=== PATIENT | female | born 1980 | race Caucasian/White ===

== ENCOUNTER 2016-11-07 03:25 | Observation (INO) | payer BC ==
[2016-11-07] MEDS ORDERED: Albuterol/Ipratropium NEB.SOL* Albuterol 2.5 MG/Ipratropium 0.5 MG 3 ML INH ONE ×2 (03:48→06:21)
[2016-11-07] MEDS ORDERED: methylPREDNISolone 125 MG* 2 ML VIAL IV ONE (03:48)
[2016-11-07] MEDS ORDERED: NS 0.9% 1000 ML* 1,000 ML IV ONE (03:48)
[2016-11-07] MEDS ORDERED: Albuterol/Ipratropium NEB.SOL* Albuterol 2.5 MG/Ipratropium 0.5 MG 3 ML ONE ×2 (04:31→20:31)
[2016-11-07 04:32] LABS: ALT 15 U/L (7-52); AST 22 U/L (13-39); Albumin 4.6 g/dL (3.2-5.2); Alkaline Phosphatase 64 U/L (34-104); Anion Gap 9 mmol/L (2-11); Blood Urea Nitrogen 12 mg/dL (6-24); CO2 Carbon Dioxide 22 mmol/L (22-32); Calcium 9.4 mg/dL (8.6-10.3); Chloride 102 mmol/L (101-111); EGFR African American 111.8 (>60); Globulin 3.4 g/dL (2-4); Glucose 124 mg/dL (70-100); Potassium 3.7 mmol/L (3.5-5.0); Sodium 133 mmol/L (133-145)
[2016-11-07 04:37] LABS: Hematocrit 46 % (35-47); Hemoglobin 15.5 g/dl (12.0-16.0); Mean Corpuscular HGB Conc 34 g/dl (31-36); Mean Corpuscular Hemoglobin 30 pg (27-31); Mean Corpuscular Volume 88 fL (80-97); Mean Platelet Volume 9 um3 (7.4-10.4); Red Blood Count 5.24 10^6/ul (4.0-5.4); Red Cell Distribution Width 13 % (10.5-15)
[2016-11-07 04:44] LABS: PCO2 Arterial 33 mmHg (35-45)
[2016-11-07 04:45] LABS: FIO2 28
--- NOTE | 2016-11-07 06:46 | ED ---
stacie Valencia Timothy, scribed for Romero Taylor on 11/07/16 at 0343 . Influenza-Like Illness - HPI Summary HPI Summary: Arsalan Freeman is a 36 yo female presenting to [facility] with flu-like Sx including SOB, productive cough today, and 8/10 pain since 11/04/16. She denies abd pain. She states she had fever 11/06/16. She has self-medicated with 500mg naproxen at 0100. She has no pertinent MHx. She is a tobacco smoker. - History of Current Complaint Time Seen by Provider: 11/07/16 03:38 Hx Obtained From: Patient Onset/Duration: Gradual Onset, Lasting Days, Still Present Severity: Moderate Associated Signs & Symptoms: Fever, Cough - Allergy/Home Medications Allergies/Adverse Reactions: Allergies Allergy/AdvReac Type Severity Reaction Status Date / Time No Known Allergies Allergy Verified 11/07/16 05:23 PMH/Surg Hx/FS Hx/Imm Hx Endocrine/Hematology History: Denies: Hx Diabetes Cardiovascular History: Denies: Hx Hypertension, Hx Pacemaker/ICD History: Denies: Hx Renal Disease Sensory History: Denies: Hx Hearing Aid Psychiatric History: Denies: Hx Panic Disorder - Surgical History Surgery Procedure, Year, and Place: WISDOM TEETH Infectious Disease History: No Infectious Disease History: Denies: Traveled Outside the [place] in Last 30 Days - Family History Known Family History: Positive: Diabetes Negative: Cardiac Disease, Hypertension - Social History Alcohol Use: None Hx Substance Use: No Substance Use Type: Reports: None Hx Tobacco Use: Yes Smoking Status (MU): Light Every Day Tobacco Smoker Review of Systems Positive: Fever Eyes: Negative ENT: Negative Cardiovascular: Negative Positive: Shortness Of Breath, Cough Gastrointestinal: Negative Genitourinary: Negative Musculoskeletal: Negative Skin: Negative Neurological: Negative Psychological: Normal All Other Systems Reviewed And Are Negative: Yes Physical Exam Triage Information Reviewed: Yes Vital Signs On Initial Exam: Initial Vitals Temp Pulse Resp BP Pulse Ox 97.7 F 92 16 132/74 96 11/07/16 03:29 11/07/16 03:29 11/07/16 03:29 11/07/16 03:29 11/07/16 03:29 Vital Signs Reviewed: Yes Appearance: Positive: No Pain Distress, Well-Nourished, Ill-Appearing Skin: Positive: Warm, Skin Color Reflects Adequate Perfusion, Dry Head/Face: Positive: Normal Head/Face Inspection Eyes: Positive: EOMI, RADHA ENT: Positive: Normal ENT inspection Neck: Positive: Supple, Nontender Respiratory/Lung Sounds: Positive: Clear to Auscultation, Breath Sounds Present , Wheezes - bilateral Cardiovascular: Positive: RRR, Pulses are Symmetrical in both Upper and Lower Extremities Abdomen Description: Positive: Nontender, Soft Bowel Sounds: Positive: Present Musculoskeletal: Positive: Normal, Strength/ROM Intact Neurological: Positive: Normal, Sensory/Motor Intact, Alert, Oriented to Person Place, Time Psychiatric: Positive: Normal Diagnostics - Vital Signs Vital Signs Temp Pulse Resp BP Pulse Ox 11/07/16 03:29 97.7 F 92 16 132/74 96 - Laboratory Result Diagrams: 11/07/16 03:55 11/07/16 03:55 Lab Statement: Any lab studies that have been ordered have been reviewed, and results considered in the medical decision making process. - Radiology CXR Xray Interpretation: No Acute Changes - No acute disease Radiology Interpretation Completed By: ED Physician Re-Evaluation - Re-Evaluation First Eval Re-Evaluation Time: 06:17 Change: Improved Comment: Pt received breathing Tx and is breathing much easier. Pt is still wheezy. Flu Symptom Course/Dx - Course Assessment/Plan: Arsalan Freeman is a 36 yo female presenting to [facility] with flu-like Sx and SOB and cough. After clinical examination and review of her negative CXR , negative flu tests, and lab work, she will be signed out to Dr. Cullen pending further evaluation. - Diagnoses Provider Diagnoses: Bronchospasm, Dyspnea Discharge - Discharge Plan Condition: Stable Disposition: OTHER Discharge Disposition Comment: sign out to Dr. Cullen for further evaluation Referrals: Bry Solis MD [Primary Care Provider] - The documentation as recorded by the stacie cuba Timothy accurately reflects the service I personally performed and the decisions made by , Romero Taylor.
[2016-11-07 07:44] LABS: Budding Yeast Present (Absent); Urine Bacteria Absent (Absent)
--- NOTE | 2016-11-07 07:56 | RAD ---
HISTORY: Shortness of breath COMPARISONS: None VIEWS:1: Single frontal portable view of the chest at 4:00 AM FINDINGS: LINES AND TUBES: None. CARDIOMEDIASTINAL SILHOUETTE: The cardiomediastinal silhouette is normal for portable technique. PLEURA: The costophrenic angles are sharp. No pleural abnormalities are noted. LUNG PARENCHYMA: The lungs are clear. ABDOMEN: The upper abdomen is clear. There is no subphrenic gas. BONES AND SOFT TISSUES: No bone or soft tissue abnormalities are noted. IMPRESSION: NO ACTIVE CARDIOPULMONARY DISEASE.
[2016-11-07] MEDS ORDERED: Acetaminophen TAB* 325 MG PO PRN (08:09)
[2016-11-07] MEDS ORDERED: Nicotine Inhaler* 10 MG AMP INH PRN (08:23)
--- NOTE | 2016-11-07 11:42 | ECHO ---
Patient: MISAEL CH [facility] Rec#: [id number] : 1980 Date: 11/07/2016 Age: 36y Height: 154.94 cm / 61.0 in Weight: 47.63 kg / 105.0 lbs Sex: F BSA: 1.44 Room#: [facility] Admit Date#: 11/07/2016 Type: Inpatient Referring: Bry Zelaya MD Reading: Adam Bernstein MD [employer] Installer: Maribel De Anda CHERI CC: Bry Solis MD Transthoracic Echocardiogram Indication: ACS,tachycardia BP: 102/64 HR: 108 Rhythm: Tachycardia Findings History: Admitted with SOB,fever. PMHx: smoker. Technical Comments: The study is technically limited due to the patient's smoking history. Completed at 1143. Left Ventricle: The left ventricular chamber size is decreased. Global left ventricular wall motion and contractility are within normal limits. There is normal left ventricular systolic function. The estimated ejection fraction is 60-65%. There is no consistent Doppler evidence of clinically significant diastolic dysfunction. Left Atrium: The left atrial cavity size is abnormally small. Right Ventricle: The right ventricular cavity size is abnormally small. The right ventricular global systolic function is normal. Right Atrium: The right atrial cavity size is normal. Aortic Valve: There is no evidence of aortic regurgitation. There is no evidence of aortic stenosis. Mitral Valve: The mitral valve leaflets appear normal. There is a trace of mitral regurgitation. There is no evidence of mitral stenosis. Tricuspid Valve: The tricuspid valve leaflets are normal. There is mild tricuspid regurgitation. There is no tricuspid stenosis. Pulmonic Valve: The pulmonic valve structure is not well visualized. Pericardium: The pericardium appears normal. There is no pericardial effusion. Aorta: The ascending aorta is not well visualized. There is no dilatation of the aortic arch. There is no dilation of the aortic root. Pulmonary Artery: The main pulmonary artery is not well visualized. Venous: The inferior vena cava appears normal in size. There is a greater than 50% respiratory change in the inferior vena cava dimension. Summary: There was not any prior study for comparison. Conclusions Global left ventricular wall motion and contractility are within normal limits. There is normal left ventricular systolic function. The estimated ejection fraction is 60-65%. The right ventricular global systolic function is normal. There is no evidence of aortic stenosis. There is a trace of mitral regurgitation. There is mild tricuspid regurgitation. The pericardium appears normal. There is no pericardial effusion. There was not any prior study for comparison. Measurements Name Value Normal Range RVIDd (AP) 2D 1.7 cm (0.9 - 2.6) RVDdMajor (2D) 2.1 cm (2.2 - 4.4) RAd ISD 4CH 3.4 cm (3.4 - 4.9) RA (A4C)W 3.3 cm (2.9 - 4.6) IVSd (2D) 0.7 cm (0.6 - 1) LVPWd (2D) 0.7 cm (0.6 - 1) LVIDd (2D) 2.6 cm (3.6 - 5.4) LVIDs (2D) 1.5 cm - LV FS (2D) 43 % (25 - 45) Aortic Annulus 1.5 cm (1.4 - 2.6) Ao root diameter (2D) 2.6 cm (2.1 - 3.5) Aortic arch 2.1 cm (1.8 - 3.4) Descending Ao 0.7 cm - LA dimension (AP) 2D 1.7 cm (2.3 - 3.8) LAd ISD 4CH 4.1 cm (2.9 - 5.3) LA ISD 4CH W 3.7 cm (2.5 - 4.5) Name Value Normal Range MV E-wave Vmax 0.9 m/sec - MV deceleration time 139 msec - MV A-wave Vmax 1 m/sec - MV E:A ratio 0.84 ratio - LV septal e' Vmax 0.1 m/sec - LV lateral e' Vmax 0.08 m/sec - LV E:e' septal ratio 9 ratio - LV E:e' lateral ratio 11.25 ratio - Name Value Normal Range AV Vmax 1.5 m/sec - AV VTI 29.7 cm - AV peak gradient 8.5 mmHg - AV mean gradient 3.59 mmHg - LVOT Vmax 1.1 m/sec - LVOT VTI 21.1 cm - LVOT peak gradient 4.69 mmHg - LVOT mean gradient 2.37 mmHg - Name Value Normal Range TR Vmax 2.7 m/sec - TR peak gradient 29 mmHg - RAP 3 mmHg - RVSP 32 mmHg - IVC diameter 0.9 cm -
[2016-11-07] MEDS: Gabapentin CAP(*) 100 MG PO SCH (12:05)
[2016-11-07] MEDS: NS 0.9% 1000 ML* 1,000 ML IV SCH ×2 (12:08→17:25)
[2016-11-07 12:32] LABS: C Reactive Protein 37.33 mg/L (< 5.00)
[2016-11-07] MEDS: Ibuprofen TAB* 600 MG PO SCH ×2 (14:23→21:12)
--- NOTE | 2016-11-07 15:46 | HP ---
ADMISSION HISTORY AND PHYSICAL: DATE OF ADMISSION: 11/07/16 PRIMARY CARE PROVIDER: Dr. Solis. HEALTH CARE PROXY: . CODE STATUS: Full. SOURCE OF INFORMATION: History obtained from interview with the patient and her . RELIABILITY: Fair. CHIEF COMPLAINT: "I couldn't breathe." HISTORY OF PRESENT ILLNESS: This is a 36-year-old female, no known significant past medical history, that was in her usual state of health until 2 days prior, she felt like she had flu-like symptoms associated with sweating and chills, but no measured fever at that time, myalgias, and generalized malaise. Her entire family had been sick including her and 2 children. Yesterday, she had increased difficulty breathing with the sensation she could not take a deep breath in, limited by tightness in her chest with deep breath, and she did have slight chest pain with deep inspiration. She felt like her difficulty breathing was worse with any ambulation and felt like she was gasping on walking to the bathroom. Overnight, she felt like she was not improving and therefore proceeded to the emergency room. In the emergency room, she was noted to be hypoxemic, requiring oxygen and the hospitalist service was consulted for admission. Of note, the patient has struggled with chronic symptomatology including dizziness described as disequilibrium, knee swelling and joint pain, "nerve pain " in the legs that feels "electric" for the last 5 years, no hair loss but sensation of decreasing hair fullness, blurry vision, leg tremors that last for less than 5 minutes described as myoclonic twitching for the last 2 to 3 years. She notes she is followed by Rheumatology as well as Neurology and her PCP, but carries no formal diagnosis at this time. She has had none of the above symptoms including the disequilibrium, knee swelling, pain, nerve pain, hair loss, blurry vision, or tremor over the last several days. PAST MEDICAL HISTORY: Includes tobacco abuse. MEDICATIONS: Include: 1. Gabapentin 100 mg in the morning and 200 mg in the evening. 2. Naproxen 500 mg in the morning and in the evening as needed. 3. Vitamin D3 [id number]. 4. Sinupret [id number] for sinuses daily. ALLERGIES: No known drug allergies. FAMILY HISTORY: No history of heart or lung disease. No known cancers or autoimmune disorders. SOCIAL HISTORY: Six cigarettes per day for 20 years. No alcohol. Marijuana nightly to assist with sleep. 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 , with 2 children. REVIEW OF SYSTEMS: As per HPI, including recent flu-like symptoms, including sweats, chills, myalgias, fatigue, increased shortness of breath, additionally cough and sore throat; otherwise, all other systems are negative. PHYSICAL EXAMINATION GENERAL: She is sitting up in bed, talks in full sentences, interactive. No apparent distress. VITAL SIGNS: When seen by this author, blood pressure 124/64, heart rate 140, respiratory rate is 16, T-max in the emergency room 99.4, and she remains 93% on 2 L nasal cannula. HEENT: Oropharynx is clear. Moist mucous membranes. Sclerae are anicteric. NECK: She had non-elevated JVD. No palpable cervical or supraclavicular lymphadenopathy. LUNGS: Her lungs have end-expiratory wheezes predominantly in the bases. HEART: She has a tachycardic heart rate with a very soft 1/6 to 2/6 early systolic ejection murmur, prominent P2. ABDOMEN: Soft, nontender, and nondistended with positive bowel sounds. No hepatosplenomegaly. EXTREMITIES: Warm and well-perfused. Less than 2-second cap refill. Good skin turgor. No clubbing, cyanosis, or edema. NEUROLOGIC: She is alert and oriented x3. Cranial nerves II through XII are intact. Gait was not assessed. No skin lesions noted. She has no apparent anxiety, agitation, or depression. DIAGNOSTIC STUDIES/LAB DATA: Labs reviewed. Sodium 133, potassium 3.7, bicarb 22, BUN 12, creatinine 0.75, and lactic acid is 1.4. LFTs are within normal limits. Troponin I is 0.00. BNP is 18. Beta-hCG is negative. Arterial pH 7.4 with pCO2 of 33 and pO2 of 97 on unknown amount of FiO2. White blood cell count is 8, hemoglobin 15.5, and platelets 199. Urine is concentrated with specific gravity of 1.031, 3+ red blood cells, as well as squamous epithelial cells. Other tests not performed secondary to color, negative for rapid influenza A and B. EKG reviewed, sinus tachycardia, borderline right axis, prolonged QTc measured at 576, possible left atrial enlargement, good R-wave progression, apparent FL elevations in II, III, aVF, V3 with [address] depressions in V3 and V4. Chest x-ray, formal impression: No active cardiopulmonary disease. No widening of the mediastinal silhouette in this author's interpretation. ASSESSMENT AND PLAN: This is a 36-year-old female with recent upper respiratory infection symptoms, presenting with difficulty breathing, notable hypoxia on presentation. Hypoxemia: This very well may be postviral reactive airway disease. No evidence to suggest bronchitis or pneumonia. In the setting of tachycardia, ST depressions as well as FL changes, borderline low-voltage throughout. It would be prudent to check a transthoracic echocardiogram to rule out any pericardial effusion. Pericarditis is on the differential, although the patient has not had chest pain except for yesterday. After transthoracic echocardiogram, can consider treating with nonsteroidal anti-inflammatories for pericarditis. Additionally, pericardial effusion is in the differential, status post recent upper respiratory infection, which could also cause difficulty breathing as well as tachycardia. We will hold on nonsteroidals until evaluation for potential effusion is performed. Pulmonary embolism is also on the differential , although the above deemed more likely by this author, we will hold on CTA. If transthoracic echocardiogram is unrevealing, we will move to perform this test. EKG changes - with ST depressions anterolaterally. We will repeat troponin now. Additionally, check D-dimer given prominent P2, tachycardia, and borderline low- voltage throughout EKG. Prolonged QTc measurement hindered by rapid rate. Repeat EKG when rate better controlled. 2 L of normal saline at 200 cc per hour for tachycardia. Hold QTc prolonging drugs including Zofran. Tobacco abuse: Nicotine inhaler available. DVT prophylaxis: Low risk, out of bed ad mariela. CC: Dr. Solis * [id number]/[facility] #: [id number] [facility] CENTERJose
[2016-11-07 16:53] LABS: Erythrocyte Sed Rate 22 mm/Hr (0-14)
--- NOTE | 2016-11-07 18:47 | CONS ---
CARDIOLOGY CONSULTATION: DATE OF CONSULT: 11/07/16 INDICATION FOR CONSULTATION: Chest pain, abnormal EKG. HISTORY OF PRESENT ILLNESS: The patient is a 36-year-old female with little past medical history who came to the emergency room because of chest pain and shortness of breath. Patient states that her family had been ill with a viral syndrome. Patient states that she was having fevers and shortness of breath at the end of last week. However, over the weekend she became progressively more weak and short of breath. She decided to come to the emergency room last night because of the shortness of breath. On arrival to the emergency room, the patient was in sinus tachycardia. Her initial EKG showed sinus tachycardia with nonspecific ST-T wave abnormalities. Patient's initial troponin was 0. Her second troponin was 0.35. Patient denies any true anginal type chest pain. Patient denies any palpitations. She denies any lightheadedness, dizziness, or syncope. Patient was admitted to the hospital because of her viral syndrome. Patient had an echocardiogram today, which demonstrated normal LV size and systolic function. No evidence of pericardial effusion. No focal wall motion abnormality. PAST MEDICAL HISTORY: Significant only for chronic fatigue syndrome. OUTPATIENT MEDICATIONS: 1. Gabapentin 200 mg q.h.s. 2. Naprosyn as needed. 3. Multivitamin a day. ALLERGIES: No known drug allergies. FAMILY HISTORY: No family history early coronary artery disease. SOCIAL HISTORY: She is . She denies tobacco or alcohol use. She has 2 children. REVIEW OF SYSTEMS: Positive for fever and chills. Positive for mild weight loss. Negative for nausea or vomiting. PHYSICAL EXAM: Height is 5 feet, weight is 105 pounds. Temperature 100 degrees Fahrenheit, heart rate is 120 and regular. Respiratory rate is 20, oxygen saturation 95% on 2 L, blood pressure 102/64. Sclerae anicteric. Oropharynx is pink without erythema. Carotids are 2+ without bruits. JVD is normal. Thyroid is normal. Cardiac exam: S1, S2 without any murmurs, rubs or gallops. Lungs are clear to auscultation. Extremities: Show no edema. Patient is awake, alert and oriented. She moves all 4 extremities equally. LABORATORY STUDIES: Chemistries within normal limits. AST and ALT within normal limits. Again, troponin level was initially 0, second troponin 0.35. CBC is normal. IMPRESSION: This is a 36-year-old female who came to the emergency room because of shortness of breath and fevers. The patient was admitted to the hospital with diagnosis of a viral syndrome. She has mildly elevated troponin levels consistent with mild pericarditis. Patient's echocardiogram is unremarkable. There is no evidence of focal wall motion abnormalities and no evidence of pericardial involvement. For now, my recommendation is to continue the patient on supportive care. She will be started on antiinflammatory medications. We will follow her EKGs. CC: Bry Zelaya MD * [id number]/[facility] #: [id number] MTDD
[2016-11-07] MEDS ORDERED: Albuterol/Ipratropium NEB.SOL* Albuterol 2.5 MG/Ipratropium 0.5 MG 3 ML INH PRN (20:26)
[2016-11-07] MEDS ORDERED: Gabapentin CAP(*) 100 MG PO SCH (21:00)
[2016-11-07] MEDS: Colchicine* 0.6 MG TAB PO SCH (21:13)
[2016-11-08] MEDS: Ibuprofen TAB* 600 MG PO SCH ×2 (05:30→11:56)
[2016-11-08] MEDS: Colchicine* 0.6 MG TAB PO SCH (08:49)
[2016-11-08] MEDS: Gabapentin CAP(*) 100 MG PO SCH (08:49)
[2016-11-08 11:27] VITALS: BP 105/70
--- NOTE | 2016-11-08 22:01 | DS ---
DISCHARGE SUMMARY: DATE OF ADMISSION: 11/07/16 DATE OF DISCHARGE: 11/08/16 PRIMARY CARE PROVIDER: Dr. Solis. PRIMARY DIAGNOSES: 1. Pericarditis. 2. Reactive airway disease. MEDICATIONS ON DISCHARGE: Include: 1. Vitamin D3 1000 International Units daily. 2. Multivitamin 1 tab daily. 3. Gabapentin 100 mg in the morning, 200 mg in the evening. 4. Prednisone 50 mg daily for 5 additional days. 5. Protonix 20 mg daily. 6. Ibuprofen 600 mg every 3 hours standing. 7. Colchicine 0.6 mg twice daily for 3 additional months. 8. Ventolin HFA 1 to 2 puffs inhaler every 4 hours as needed for shortness of breath or wheeze. PERTINENT IMAGING STUDIES: Transthoracic echocardiogram, impression: Normal left ventricular systolic function, estimated EF 60% to 65%. Right ventricular function also normal. No evidence of aortic stenosis. Trace MR, mild TR, normal appearing pericardial, no pericardial effusion. Chest x-ray: No active cardiopulmonary disease. PERTINENT LABORATORY DATA: ESR is 22. D-dimer less than 200. CRP 37.7. Troponin I did have one value of 0.35 with subsequent value of 0.00, suspected this was an abnormality in testing. Influenza A and B are negative. HISTORY OF PRESENT ILLNESS AND HOSPITAL COURSE: This 36-year-old female presented to the hospital with flu-like symptoms and increasing shortness of breath. She had symptoms on EKG suspicious for pericarditis. She had an elevated troponin with suspicion for mild pericarditis. She was seen in consultation with Dr. Bernstein from Cardiology, who agreed. However, her repeat troponin has decreased to 0.00, decreasing the likelihood that this is mild pericarditis. Her fevers updated, only fever in the hospital of 100.0 on the day of admission in the morning. She was ambulated on the day of discharge and oxygen nadired at 91% with activity, suspect with upper respiratory tract infection, she has reactive airway disease. She did have moderate wheeze on the day of discharge. For this reason, she will be discharged on steroids for 5 additional days. Treatment for pericarditis should include at least a week of nonsteroidal antiinflammatory which she was discharged with. A repeat ESR and CRP should be followed to dictate time of discontinuation. She should continue her colchicine for 3 additional months. She was discharged with proton pump inhibitor in the setting of nonsteroidal antiinflammatory and steroid dosing. There were no complications with this patient's hospital stay. FOLLOWUP INSTRUCTIONS: At followup, please: 1. Taper Motrin based on inflammatory markers. 2. Evaluate lung findings, prolong steroids as needed. 3. No other specific labs or vitals that need following. REASONS TO RETURN TO THE HOSPITAL: Including, but not limited to, recurrent or worsening symptoms, shortness of breath, chest pain, nausea, vomiting, lightheadedness, loss of consciousness, near loss of consciousness, inability to obtain or tolerate medications were discussed with the patient and she acknowledged understanding. TIME SPENT: Greater than 45 minutes was spent on the discharge of this patient with greater than half was spent [id number] with the patient. CC: Dr. Solis * [id number]/[facility] #: [id number] DEJON
--- NOTE | 2016-12-01 12:25 | ED ---
Prema Valencia Anna, scribed for Semaj Cullen MD on 11/07/16 at 0711 . Progress - Progress Note Progress Note: Patient was signed out from Dr. Taylor at the shift change. She is a 36 y/o female who had been experiencing flu-like symptoms and SOB. Breathing treatment was completed in the ED. Re-Evaluation - Re-Evaluation First Eval Re-Evaluation Time: 07:25 Comment: Patient reports feelin better with O2 and breathing treatments. She is still tachycardic, HR 135. She is a smoker with no history of DVTs. Discussed results and plan of care with patient. Patient agrees with plan. Course/Dx - Diagnoses Provider Diagnoses: Bronchospasm, Dyspnea - Provider Notifications Discussed Care Of Patient With: Dr. Zelaya (hospitalist) at 1912. Agrees to accept patient for admission. The documentation as recorded by the gueritaibPrema kim Anna accurately reflects the service I personally performed and the decisions made by , Semaj Cullen MD.
== END 2016-11-08 13:56 | disposition home or self-care (01) ==
LOC: ED 03:25 → MEDTELE 08:10
PROVIDERS: ADMIT Internal Medicine; ATTEND Internal Medicine
DX: I31.9 Disease of pericardium, unspecified (principal); J98.9 Respiratory disorder, unspecified; R50.9 Fever, unspecified; R05 Cough
CPT/HCPCS: 36415; 36600; 71010; 80053; 81003; 82803; 83605; 83880; 84484; 84702; 85025; 85379; 85652; 86140; 87040; 87502; 93005; 93306; 94640; 96374; 99283; 99406; A9270-GY; G0378; J2930